=== PATIENT | female | born 1955 | race Caucasian/White ===

== ENCOUNTER 2024-01-22 10:39 | Outpatient (CLI) | payer MEDICARE, BC | END 2024-01-22 23:59 | disposition home or self-care (01) | LOC: RAD 10:39 | PROVIDERS: ATTEND Surgery | DX: N28.1 Cyst of kidney, acquired (principal); R19.05 Periumbilic swelling, mass or lump; R10.33 Periumbilical pain; I10 Essential (primary) hypertension; K57.30 Diverticulosis of large intestine without perforation or abscess without bleeding | CPT/HCPCS: 74176 ==